=== PATIENT | male | born 1955 | race Caucasian/White ===

== ENCOUNTER 2017-04-17 17:24 | Inpatient (IN) ==
[2017-04-17] MEDS ORDERED: NALOXONE 0.4 MG/ML VIAL IV STA (18:15)
[2017-04-17] MEDS ORDERED: NALOXONE 0.4 MG/ML VIAL ONE (18:16)
[2017-04-17] MEDS ORDERED: SODIUM CHLORIDE 0.9% 1,000 ML IV STA (18:16)
[2017-04-17 18:23] LABS: Basophils # 0.1 10*3/uL (0.0-0.2); Basophils % 0.7 % (0.0-0.8); Eosinophils % 0.3 % (0.00-10.9); Hematocrit 44.5 VOL% (42.0-52.0); Immature Granulocytes % 0.3 %; Immature Granulocytes Absolute 0.02 #; Lymphocytes # 0.8 10*3/uL (1.4-4.0); Lymphocytes % 11.7 % (21.2-54.2); Mean Corpuscular HGB Conc 33.7 GM/DL (32-36); Mean Corpuscular Hemoglobin 30 PG (27-34); Mean Corpuscular Volume 89.7 FL (87-102); Mean Platelet Volume 10.1 FL (9.6-12.0); Monocytes # 0.4 10*3/uL (0.11-0.8); Monocytes % 5.6 % (1.7-12.7); Neutrophils # 5.8 10*3/uL (1.4-7.4); Neutrophils % 81.4 % (38.7-73.9); Platelet Count 201 T/CUMM (130-400); Red Blood Count 4.96 MC/CUMM (3.8-5.5); Red Cell Distribution Width 13.6 % (9.3-17.3); White Blood Count 7.2 T/CUMM (4-12)
[2017-04-17 18:51] LABS: Bilirubin,Total 0.8 MG/DL (0.2-1.0); Calcium 9.5 MG/DL (8.5-10.1); Potassium 4.9 MMOL/L (3.5-5.1); Total Protein 6.8 G/DL (6.4-8.3)
[2017-04-17 18:54] LABS: CKMB % 0.8 %; Troponin I Only 0.018 NG/ML (0.00-0.045)
[2017-04-17 21:04] LABS: Apearance,Urine CLEAR (Clear); Bilirubin,Urine Negative (Negative); Blood, Urine Negative (Negative); Glucose,Urine (UA) Negative (Negative); Ketones,Urine 20 mg/dL (Negative); Mucus,Urine Occasional /LPF (Occasional); Nitrite,Urine Negative (Negative); Protein,Urine Negative; RBC,Urine 1 /HPF (0-4); Urine Color Yellow (Yellow); Urine Specific Gravity 1.008 (1.001-1.035); Urine Urobilinogen < 2.0 EU/DL (0.2-1.0); WBC,Urine 1 /HPF (0-6)
[2017-04-17 21:06] LABS: Barbiturates Screen,Urine Negative (Negative); Benzodiazepines Screen,Urine Negative (Negative); Cannabinoid Screen,Urine Negative (Negative); Opiate Screen,Urine Positive (Negative); Phencyclidine Screen,Urine Negative (Negative)
[2017-04-17] MEDS ORDERED: SODIUM CHLORIDE 0.9% 1,000 ML IV ONE (23:01)
[2017-04-17] MEDS ORDERED: ALBUTEROL/IPRATROPIUM 3 ML NEB RESP TX PRN (23:01)
[2017-04-17] MEDS ORDERED: ONDANSETRON 4 MG/2 ML VIAL IV PRN (23:01)
[2017-04-17] MEDS: ENOXAPARIN 40 MG/0.4 ML SYRINGE SUBCUT SCH (23:29)
[2017-04-17] MEDS: PANTOPRAZOLE 40 MG VIAL IV SCH (23:30)
[2017-04-18] MEDS: ALBUTEROL/IPRATROPIUM 3 ML NEB RESP TX SCH ×4 (00:01→19:40)
[2017-04-18] MEDS: SODIUM CHLORIDE 0.9% 1,000 ML IV SCH ×3 (00:35→17:59)
[2017-04-18 02:42] LABS: CKMB % 0.7 %; Troponin I Only 0.044 NG/ML (0.00-0.045)
[2017-04-18 07:19] LABS: CKMB % 0.7 %; Troponin I Only 0.043 NG/ML (0.00-0.045)
[2017-04-18] MEDS: VITAMIN E 400 UNIT CAPSULE PO SCH (09:58)
[2017-04-18] MEDS: GABAPENTIN 400 MG CAPSULE PO SCH ×3 (09:58→20:20)
[2017-04-18] MEDS: NICOTINE 21 MG/24 HR PATCH TRANSDERM PRN (09:58)
[2017-04-18] MEDS: TAMSULOSIN 0.4 MG CAPSULE PO SCH (09:59)
[2017-04-18] MEDS: MEGESTROL 40 MG TABLET PO SCH (09:59)
[2017-04-18] MEDS: POLYETHYLENE GLYCOL POWDER 17 GM PACK PO SCH (09:59)
[2017-04-18] MEDS: PANTOPRAZOLE 40 MG VIAL IV SCH (20:20)
[2017-04-18] MEDS: ENOXAPARIN 40 MG/0.4 ML SYRINGE SUBCUT SCH (20:20)
[2017-04-18] MEDS: MORPHINE 2 MG/1 ML SYRINGE IV PRN (22:23)
[2017-04-18] MEDS: MORPHINE ER 15 MG TABLET PO PRN (22:54)
[2017-04-19] MEDS: SODIUM CHLORIDE 0.9% 1,000 ML IV SCH ×2 (00:11→07:43)
[2017-04-19] MEDS: ALBUTEROL/IPRATROPIUM 3 ML NEB RESP TX SCH ×2 (01:58→08:30)
[2017-04-19] MEDS: MORPHINE 2 MG/1 ML SYRINGE IV PRN ×2 (04:45→07:42)
[2017-04-19 06:46] LABS: Calcium 7.7 MG/DL (8.5-10.1); Osmolality,Calculated 285.8 MOS/KG (273-304); Potassium 3.4 MMOL/L (3.5-5.1)
[2017-04-19] MEDS: NICOTINE 21 MG/24 HR PATCH TRANSDERM PRN (08:09)
[2017-04-19] MEDS: TAMSULOSIN 0.4 MG CAPSULE PO SCH (08:10)
[2017-04-19] MEDS: POLYETHYLENE GLYCOL POWDER 17 GM PACK PO SCH (08:10)
[2017-04-19] MEDS: MEGESTROL 40 MG TABLET PO SCH (08:10)
[2017-04-19] MEDS: GABAPENTIN 400 MG CAPSULE PO SCH (08:11)
[2017-04-19] MEDS: MORPHINE ER 15 MG TABLET PO PRN (08:12)
[2017-04-19] MEDS: VITAMIN E 400 UNIT CAPSULE PO SCH (08:12)
[2017-04-19 10:02] VITALS: BP 100/50
[2017-04-24] MEDS ORDERED: NON-FORMULARY MEDICATION (Alendronate [Fosamax] 70 MG) PO SCH (07:30)
== END 2017-04-19 11:01 | disposition home or self-care (01) | DRG 918 ==
LOC: EDBD → EDUNIT# → N.ED 17:24 → SUATTDRO 22:07 → N.EDINP 22:07 → N.ICU 22:26
PROVIDERS: ADMIT Hospitalist; ATTEND Internal Medicine Cardiovascular Disease

== ENCOUNTER 2017-05-02 12:52 | Inpatient (IN) ==
[2017-05-02] MEDS ORDERED: ALBUTEROL/IPRATROPIUM 3 ML NEB RESP TX STA (13:44)
[2017-05-02 13:51] LABS: Basophils % 0.1 % (0.0-0.8); Hematocrit 41.4 VOL% (42.0-52.0); Hemoglobin 14.1 GM/DL (14.0-18.0); Immature Granulocytes % 0.3 %; Immature Granulocytes Absolute 0.03 #; Lymphocytes # 1.1 10*3/uL (1.4-4.0); Lymphocytes % 13.1 % (21.2-54.2); Mean Corpuscular HGB Conc 34.1 GM/DL (32-36); Mean Corpuscular Hemoglobin 30 PG (27-34); Mean Corpuscular Volume 87.7 FL (87-102); Mean Platelet Volume 10.5 FL (9.6-12.0); Monocytes # 0.6 10*3/uL (0.11-0.8); Monocytes % 6.9 % (1.7-12.7); Neutrophils % 79.6 % (38.7-73.9); Platelet Count 184 T/CUMM (130-400); Red Blood Count 4.72 MC/CUMM (3.8-5.5); White Blood Count 8.7 T/CUMM (4-12)
[2017-05-02 14:35] LABS: Lactic Acid 1.9 MMOL/L (0.4-2.0)
[2017-05-02 14:44] LABS: Alanine Aminotransferase 19 U/L (16-61); Albumin 3.9 G/DL (3.4-5.0); Alkaline Phosphatase 77 U/L (45-117); Aspartate Amino Transferase 51 U/L (0-37); Blood Urea Nitrogen 29 MG/DL (7-18); CKMB % 0.3 %; Calcium 9.3 MG/DL (8.5-10.1); Glucose 103 MG/DL (74-106); Osmolality,Calculated 284.4 MOS/KG (273-304); Sodium 140 MMOL/L (136-145); Total Protein 6.7 G/DL (6.4-8.3); Troponin I Only < 0.015 NG/ML (0.00-0.045)
[2017-05-02] MEDS ORDERED: SODIUM CHLORIDE 0.9% 1,000 ML IV STA (14:54)
[2017-05-02 16:06] LABS: Apearance,Urine CLEAR (Clear); Bilirubin,Urine Negative (Negative); Blood, Urine Small mg/dL (Negative); Glucose,Urine (UA) Negative (Negative); Ketones,Urine 20 mg/dL (Negative); Mucus,Urine Occasional /LPF (Occasional); Nitrite,Urine Negative (Negative); Protein,Urine Negative; RBC,Urine 1 /HPF (0-4); Urine Color Amber (Yellow); Urine Specific Gravity 1.021 (1.001-1.035); WBC,Urine <1 /HPF (0-6)
[2017-05-02 18:12] LABS: Barbiturates Screen,Urine Negative (Negative); Benzodiazepines Screen,Urine Negative (Negative); Cannabinoid Screen,Urine Negative (Negative); Opiate Screen,Urine Positive (Negative); Phencyclidine Screen,Urine Negative (Negative)
[2017-05-02] MEDS: GABAPENTIN 400 MG CAPSULE PO SCH (20:44)
[2017-05-02] MEDS: NICOTINE 21 MG/24 HR PATCH TRANSDERM PRN (20:44)
[2017-05-02] MEDS: PARoxetine 20 MG TABLET PO SCH (20:44)
[2017-05-02] MEDS: MORPHINE IR 15 MG TABLET PO SCH (20:44)
[2017-05-02] MEDS: ENOXAPARIN 40 MG/0.4 ML SYRINGE SUBCUT SCH (20:45)
[2017-05-03 05:17] LABS: Basophils % 0.3 % (0.0-0.8); Eosinophils % 0.1 % (0.00-10.9); Hematocrit 39.5 VOL% (42.0-52.0); Hemoglobin 13.4 GM/DL (14.0-18.0); Immature Granulocytes % 0.4 %; Immature Granulocytes Absolute 0.03 #; Lymphocytes # 2.1 10*3/uL (1.4-4.0); Mean Corpuscular HGB Conc 33.9 GM/DL (32-36); Mean Corpuscular Hemoglobin 30 PG (27-34); Mean Corpuscular Volume 87.8 FL (87-102); Mean Platelet Volume 10.9 FL (9.6-12.0); Monocytes # 0.5 10*3/uL (0.11-0.8); Monocytes % 6.6 % (1.7-12.7); Neutrophils # 4.8 10*3/uL (1.4-7.4); Neutrophils % 64.6 % (38.7-73.9); Platelet Count 179 T/CUMM (130-400); White Blood Count 7.5 T/CUMM (4-12)
[2017-05-03 05:48] LABS: Calcium 8.9 MG/DL (8.5-10.1); Osmolality,Calculated 286.1 MOS/KG (273-304); Potassium 3.6 MMOL/L (3.5-5.1)
[2017-05-03] MEDS: MORPHINE IR 15 MG TABLET PO SCH ×3 (09:29→22:00)
[2017-05-03] MEDS: GABAPENTIN 400 MG CAPSULE PO SCH ×3 (09:30→20:51)
[2017-05-03] MEDS: SODIUM CHLORIDE 0.9% 1,000 ML IV SCH ×2 (11:24→19:32)
[2017-05-03] MEDS: ENOXAPARIN 40 MG/0.4 ML SYRINGE SUBCUT SCH (17:12)
[2017-05-03] MEDS ORDERED: guaiFENesin 200 MG/10 ML UDCUP PO PRN (19:41)
[2017-05-03] MEDS: PARoxetine 20 MG TABLET PO SCH (20:51)
[2017-05-03] MEDS: POLYETHYLENE GLYCOL POWDER 17 GM PACK PO PRN (20:52)
[2017-05-04] MEDS: SODIUM CHLORIDE 0.9% 1,000 ML IV SCH ×2 (03:33→18:06)
[2017-05-04] MEDS: MORPHINE IR 15 MG TABLET PO SCH ×3 (05:53→21:57)
[2017-05-04 06:16] LABS: Osmolality,Calculated 291.6 MOS/KG (273-304); Potassium 3.2 MMOL/L (3.5-5.1)
[2017-05-04] MEDS: GABAPENTIN 400 MG CAPSULE PO SCH ×3 (09:23→20:57)
[2017-05-04] MEDS: ALBUTEROL/IPRATROPIUM 3 ML NEB RESP TX PRN ×2 (09:59→19:22)
[2017-05-04] MEDS: POTASSIUM CHLORIDE INJ 30 MEQ in DEXTROSE 5% NACL 0.45% 1,000 ML IV SCH (14:00)
[2017-05-04] MEDS: BACITRACIN OINT 0.9 GM PACK TOP SCH (16:07)
[2017-05-04] MEDS: ENOXAPARIN 40 MG/0.4 ML SYRINGE SUBCUT SCH (18:38)
[2017-05-04] MEDS: POLYETHYLENE GLYCOL POWDER 17 GM PACK PO PRN (18:38)
[2017-05-04] MEDS: PARoxetine 20 MG TABLET PO SCH (20:57)
[2017-05-05] MEDS ORDERED: cefTRIAXone 1,000 MG in SYRINGE 1 EACH IV SCH (01:00)
[2017-05-05] MEDS: ACETAMINOPHEN 325 MG TABLET PO PRN (01:08)
[2017-05-05 02:34] LABS: Amorphous Crystals,Urine Occasional /HPF (Few); Apearance,Urine CLEAR (Clear); Bilirubin,Urine Negative (Negative); Blood, Urine Negative (Negative); Glucose,Urine (UA) Negative (Negative); Ketones,Urine Negative (Negative); Mucus,Urine Occasional /LPF (Occasional); Nitrite,Urine Negative (Negative); Protein,Urine Negative; RBC,Urine 2 /HPF (0-4); Squamous Epithelial Cell,Urine Occasional /HPF (0-10); Urine Color Yellow (Yellow); Urine Specific Gravity 1.014 (1.001-1.035); WBC,Urine <1 /HPF (0-6)
[2017-05-05] MEDS: POTASSIUM CHLORIDE INJ 30 MEQ in DEXTROSE 5% NACL 0.45% 1,000 ML IV SCH ×2 (04:33→20:27)
[2017-05-05 06:05] LABS: Calcium 7.5 MG/DL (8.5-10.1); Osmolality,Calculated 281.4 MOS/KG (273-304); Potassium 3.8 MMOL/L (3.5-5.1)
[2017-05-05] MEDS: MORPHINE IR 15 MG TABLET PO SCH ×3 (06:26→21:19)
[2017-05-05] MEDS: GABAPENTIN 400 MG CAPSULE PO SCH ×3 (09:55→20:26)
[2017-05-05] MEDS: BACITRACIN OINT 0.9 GM PACK TOP SCH (09:55)
[2017-05-05] MEDS: cefTRIAXone 1,000 MG in SYRINGE 1 EACH IV SCH (11:51)
[2017-05-05] MEDS: ALBUTEROL/IPRATROPIUM 3 ML NEB RESP TX SCH ×2 (13:00→18:18)
[2017-05-05] MEDS: ENOXAPARIN 40 MG/0.4 ML SYRINGE SUBCUT SCH (17:29)
[2017-05-05] MEDS: ATORVASTATIN 40 MG TABLET PO SCH (20:26)
[2017-05-05] MEDS: PARoxetine 20 MG TABLET PO SCH (20:27)
[2017-05-06] MEDS: ACETAMINOPHEN 325 MG TABLET PO PRN (00:16)
[2017-05-06] MEDS: ALBUTEROL/IPRATROPIUM 3 ML NEB RESP TX SCH ×4 (02:36→19:25)
[2017-05-06] MEDS: MORPHINE IR 15 MG TABLET PO SCH ×3 (06:18→21:38)
[2017-05-06] MEDS: GABAPENTIN 400 MG CAPSULE PO SCH ×3 (08:46→20:36)
[2017-05-06] MEDS: BACITRACIN OINT 0.9 GM PACK TOP SCH (08:46)
[2017-05-06] MEDS: ASPIRIN 325 MG TABLET PO SCH (08:46)
[2017-05-06] MEDS: NICOTINE 21 MG/24 HR PATCH TRANSDERM PRN (08:47)
[2017-05-06] MEDS: cefTRIAXone 1,000 MG in SYRINGE 1 EACH IV SCH (10:48)
[2017-05-06] MEDS: POTASSIUM CHLORIDE INJ 30 MEQ in DEXTROSE 5% NACL 0.45% 1,000 ML IV SCH (10:48)
[2017-05-06] MEDS: ENOXAPARIN 40 MG/0.4 ML SYRINGE SUBCUT SCH (16:36)
[2017-05-06] MEDS: PARoxetine 20 MG TABLET PO SCH (20:39)
[2017-05-06] MEDS: ATORVASTATIN 40 MG TABLET PO SCH (20:39)
[2017-05-07] MEDS: ALBUTEROL/IPRATROPIUM 3 ML NEB RESP TX SCH ×4 (00:02→19:19)
[2017-05-07] MEDS: POTASSIUM CHLORIDE INJ 30 MEQ in DEXTROSE 5% NACL 0.45% 1,000 ML IV SCH ×2 (00:15→10:50)
[2017-05-07] MEDS: MORPHINE IR 15 MG TABLET PO SCH ×4 (05:50→23:30)
[2017-05-07] MEDS: GABAPENTIN 400 MG CAPSULE PO SCH ×3 (08:49→20:41)
[2017-05-07] MEDS: ASPIRIN 325 MG TABLET PO SCH (08:49)
[2017-05-07] MEDS: BACITRACIN OINT 0.9 GM PACK TOP SCH (08:49)
[2017-05-07] MEDS: cefTRIAXone 1,000 MG in SYRINGE 1 EACH IV SCH (11:17)
[2017-05-07] MEDS: ENOXAPARIN 40 MG/0.4 ML SYRINGE SUBCUT SCH (17:23)
[2017-05-07] MEDS: ATORVASTATIN 40 MG TABLET PO SCH (20:41)
[2017-05-07] MEDS: PARoxetine 20 MG TABLET PO SCH (20:42)
[2017-05-07] MEDS: NICOTINE 21 MG/24 HR PATCH TRANSDERM PRN (23:32)
[2017-05-08] MEDS: ALBUTEROL/IPRATROPIUM 3 ML NEB RESP TX SCH ×3 (00:13→14:00)
[2017-05-08] MEDS: MORPHINE IR 15 MG TABLET PO SCH (05:00)
[2017-05-08] MEDS ORDERED: ASPIRIN CHEW 81 MG TABLET PO SCH (09:00)
[2017-05-08] MEDS: GABAPENTIN 400 MG CAPSULE PO SCH (09:09)
[2017-05-08] MEDS: BACITRACIN OINT 0.9 GM PACK TOP SCH (09:10)
[2017-05-08] MEDS: ASPIRIN 325 MG TABLET PO SCH (10:34)
[2017-05-08 13:51] VITALS: BP 105/60
== END 2017-05-08 15:50 | disposition hospice, home (50) | DRG 557 ==
LOC: EDBD → EDUNIT# → N.ED 12:52 → N.EDINP 16:47 → SUATTDRO 16:47 → N.4E 18:50
PROVIDERS: ADMIT Internal Medicine Geriatric Medicine; ATTEND Internal Medicine